=== PATIENT | male | born 1990 | race Caucasian/White ===

== ENCOUNTER 2020-05-30 06:26 | Emergency (ER) | payer OTHER, MEDICAID, SELFPAY ==
[2020-05-30 06:31] VITALS: BP 135/67; PULSE 83; RESP 16; TEMP 36.3; O2SAT 99
--- NOTE | 2020-05-30 06:43 | ED.WOUNDLAC ---
HPI - Wound/Laceration General Chief Complaint: Wound/Laceration Stated Complaint: HAND INJURY - WORK RELATED Time Seen by Provider: 05/30/20 06:42 Source: patient Mode of arrival: ambulatory Limitations: no limitations History of Present Illness HPI narrative: cut L hand on metal object at work Onset (ago): minute(s) Extremity Location: right: hand Place: work Patient tetanus UTD: Yes Context: accidental Associated symptoms: none Treatments prior to arrival: other (irrigated it, applied first aid glue and butterfly strips) Related Data Home Medications Medication Instructions Recorded Confirmed No Known Home Meds 05/30/20 05/30/20 Allergies Allergy/AdvReac Type Severity Reaction Status Date / Time No Known Allergies Allergy Verified 04/29/20 13:03 Review of Systems Review of Systems: Constitutional : No Fever, No Chills, Cardiovascular : No Chest Pain, No SOB Respiratory : No Dyspnea Gastrointestinal : No abdominal pain Musculoskeletal : No Joint Swelling Skin : No rash, positive skin laceration Neuro : No Weakness, No Numbness Psych : No SI/HI PMFSH Past Medical History Attestation statement: The following information was validated with the patient. Medical History (Updated 05/30/20 @ 06:47 by Jaz Mcginnis DO) No active medical problems Surgical History History of inguinal hernia repair Family History Family History (Updated 04/29/20 @ 13:03 by Apolonia To Leonardo) Father Murder Mother No problems noted. Social History Social History (Updated 05/30/20 @ 06:44 by Jaz Mcginnis DO) Smoking Status: Never smoker Physical Exam Vital Signs: Vital Signs: Last Vital Signs Temp 97.3 F 05/30/20 06:31 Pulse 83 05/30/20 06:31 Resp 16 05/30/20 06:31 BP 135/67 05/30/20 06:31 Pulse Ox 99 05/30/20 06:31 Body Mass Index 20.0 Appearance: Alert. Oriented X3. No acute distress. Eyes: Pupils equal, round and reactive to light. ENT: Pharynx normal. Neck: Normal inspection. Neck supple. CVS: Normal heart rate and rhythm. Pulses normal. Respiratory: No respiratory distress. Breath sounds normal. Abdomen: Soft and nontender. Skin: Skin warm and dry. Normal skin color. Normal skin turgor. Extremities: No lower extremity edema. L hand palmar area near distal aspect over hypothenar area 4cm laceration already approximated with glue, full ROM of digits, BCR in all digits, diffuse SILT intact Neuro: Oriented X 3. No motor deficit. No sensory deficit. MDM - Wound/Laceration MDM Narrative Medical decision making narrative: 30 yo male [place] intact post laceration from sharp edge - already glued wound together prearrival no concern for tendon injury will reinforce with steri strips Discharge Plan Discharge Clinical Impression: Laceration Patient Disposition: Home, Self-Care Instructions: Laceration (ED), Skin Adhesive Care (ED), Steristrips (ED) Additional Instructions: return to ED for any worsening symptoms or concerns glue will fall off in 5 to 7 days Prescriptions: No Action No Known Home Meds RF: 0 Referrals: Shruti Nelson MD [Primary Care Provider] - 2 days (if not better) Stand Alone Forms: Work/School Release
--- NOTE | 2020-05-30 06:49 | PC.NURSE ---
Patient wound cleaned and while cleaning the glue came off laceration. MD aware and wound will have to be stitched to close it.
== END 2020-05-30 07:20 | disposition home or self-care (01) ==
PROVIDERS: Emergency Provider Emergency Medicine; PCP Internal Medicine
DX: S61.412A Laceration without foreign body of left hand, initial encounter (principal); W26.8XXA Contact with other sharp object(s), not elsewhere classified, initial encounter; Y93.89 Activity, other specified; Y92.9 Unspecified place or not applicable; Y99.0 Civilian activity done for income or pay
CPT/HCPCS: 99283; 99284

== ENCOUNTER 2020-11-09 13:50 | Emergency (ER) | payer OTHER, MEDICAID, SELFPAY ==
[2020-11-09 13:53] VITALS: BP 122/71; PULSE 75; RESP 18; TEMP 36.6; O2SAT 98; BMI 19.5
--- NOTE | 2020-11-09 15:23 | ED.GENADULT ---
HPI - General Adult General Chief complaint: General Medical Stated complaint: stiff neck Time Seen by Provider: 11/09/20 15:23 Source: patient Mode of arrival: ambulatory History of Present Illness HPI narrative: 30-year-old male with no significant past medical history presenting to the ED complaining of left-sided neck stiffness since this morning. Admits woke up with symptoms, denies known injury/trauma or fall. Reports pain exacerbated with any ROM of head. Denies fever, chills, numbness, tingling, weakness, ear pain, throat pain, headache Onset (ago): day(s) Related Data Previous Rx's Medication Instructions Recorded acetaminophen [Tylenol Extra 500 mg PO Q6H PRN #20 tab 11/09/20 Strength] cyclobenzaprine 5 mg PO Q8H PRN 5 Days #14 tab 11/09/20 lidocaine [Lidoderm] 1 patch TOPICAL DAILY PRN #30 ea 11/09/20 MDD remove after 12 hours naproxen 500 mg PO BID PRN 10 Days #20 tab 11/09/20 Allergies Allergy/AdvReac Type Severity Reaction Status Date / Time No Known Allergies Allergy Verified 04/29/20 13:03 Review of Systems Review of Systems: Constitutional: No Fever, No Chills ENT/Mouth: No Ear Pain, No Nasal Congestion, No sore throat, No Swallowing Difficulty Cardiovascular: No Chest Pain, No SOB Respiratory: No Cough Gastrointestinal: No Nausea, No Vomiting, No Diarrhea, No Abdominal pain Genitourinary: No Urinary Incontinence Musculoskeletal: + neck pain, No Myalgias, No Joint Swelling Skin: No Skin Lesions, No rash Neuro: No Weakness, No Numbness, No Paresthesias Yes all other systems are reviewed and are negative [facility] Past Medical History Attestation statement: The following information was validated with the patient. Medical History (Updated 11/09/20 @ 15:25 by ANNELISE Quintero) No active medical problems Surgical History History of inguinal hernia repair Family History Family History (Updated 04/29/20 @ 13:03 by CHICO Moreira) Father Murder Mother No problems noted. Social History Social History (Updated 05/30/20 @ 06:44 by Jaz Mcginnis DO) Alcohol intake: current Smoking Status: Never smoker Substance Use Type: Marijuana Advance Directives: No Advance Directives Information Provided: No Physical Exam Vital Signs: Vital Signs: Last Vital Signs Temp 98 F 11/09/20 13:53 Pulse 75 11/09/20 13:53 Resp 18 11/09/20 13:53 BP 122/71 11/09/20 13:53 Pulse Ox 98 11/09/20 13:53 Body Mass Index 19.5 Const: General: cooperative, healthy appearing and no acute distress Orientation/consciousness: patient oriented x3 Limitations: no limitations HENMT: Head: Yes normal to inspection and Yes atraumatic Ears: hearing grossly normal bilaterally General nose exam: Normal external nose present Face and sinus: Yes normal facial exam Mouth: Normal oral and palatal mucosa present Throat: Yes posterior oropharynx normal, Yes tonsils normal and Yes uvula midline Eyes: General: appearance normal, both eyes and all related structures EOM: EOMs intact bilaterally Neck: Other: No midline cervical spinous tenderness/step-off or deformity. + left-sided neck paraspinal/ MSK tenderness to palpation and left trapezius muscle tenderness to palpation + visible muscle spasming of neck Neck: Yes normal visual inspection, Yes no meningeal signs, Yes supple and No anterior neck swelling Chest: Chest palpation & inspection: normal inspection of the chest Resp: Effort & Inspection: normal respiratory effort and not labored Cardio: Rate: regular rate Peripheral pulses: radial pulses present GI: Inspection: Yes normal to inspection Back/Spine/Pelvis: Other: No midline thoracic/lumbar spinous tenderness Skin: Rashes: no rashes Wounds: no wounds Neuro: General: patient oriented x3, gait normal, tone normal and no meningeal signs Gait exam (Neuro): Normal gait present Extrem: General: Yes normal to inspection Medical Decision Making [facility] Narrative Medical decision making narrative: 30-year-old male with no significant past medical history presenting to the ED complaining of left-sided neck stiffness since this morning. On exam vital signs stable, NAD, physical exam as above, no midline spinous tenderness, visible muscle spasming of neck appreciated with left-sided MSK/paraspinal tenderness. Concern for muscle spasming/MSK pain. Unlikely bony/vascular abnormality Plan: Patient is driving home from ED today, discussed worrisome signs and symptoms and strict return precautions/pain management at home Discharge Plan Discharge Clinical Impression: Neck stiffness, Neck muscle spasm Patient Disposition: Home, Self-Care Instructions: Spasmodic Torticollis (ED) Additional Instructions: Your pain is likely musculoskeletal Flexeril is a muscle relaxer, take at night as it makes you drowsy, do not drive, drink alcohol, or operate machinery while taking it Naproxen as an anti-inflammatory / pain medication, take with food Lidoderm patches are numbing patches, apply to painful area In addition take Tylenol at home If symptoms persist or worsen, pain becomes unbearable, you developed urinary retention or incontinence, or weakness return to the ED Prescriptions: New acetaminophen [Tylenol Extra Strength] 500 mg tablet 500 mg PO Q6H PRN (Reason: pain or fever) Qty: 20 RF: 0 lidocaine [Lidoderm] 5 % adhesive patch,medicated 1 patch topical DAILY MDD remove after 12 hours PRN (Reason: pain) Qty: 30 RF: 0 naproxen 500 mg tablet 500 mg PO BID PRN (Reason: pain) 10 Days Qty: 20 RF: 0 cyclobenzaprine 5 mg tablet 5 mg PO Q8H PRN (Reason: pain (scale score 7-10)) 5 Days Qty: 14 RF: 0 Referrals: Shruti Nelson MD [Primary Care Provider] - 5 days
== END 2020-11-09 15:35 | disposition home or self-care (01) ==
PROVIDERS: Emergency Provider Emergency Medicine Emergency Medical Services; PCP Internal Medicine
DX: M43.6 Torticollis (principal); F12.90 Cannabis use, unspecified, uncomplicated; M62.838 Other muscle spasm; Z79.899 Other long term (current) drug therapy
CPT/HCPCS: 99283

== ENCOUNTER 2022-11-02 15:00 | Outpatient (RCR) | payer OTHER, MEDICAID, SELFPAY ==
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
--- NOTE | 2022-11-02 15:26 | MHC.OT.DC ---
[address] [phone] F: [phone] Occupational Therapy Discharge Note Patient Name: Claire Mckee Provider: CHARU Foreman Diagnosis: PAIN IN LEFT ELBOW Date of Evaluation: 09/26/22 Date of Discharge: 11/02/22 Treatments to Date: 10 Discharge Status: Achieved Goals Improved Function Independent with HEP Discharge Summary: CLAIRE IS DOING WELL S/P LEFT ELBOW INJURY. HE IS PAIN FREE AT REST AND REPORTS LIGHT PAIN STILL WITH DAY TO DAY USE. 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 *LAST WEEK Pt WAS NOTED TO HAVE AREA OF EDEMA AND REDNESS OVER RIGHT OLECRONON, SOMEWHAT IMPROVED TODAY, NOW LONGER RED. ADVISED TO FOLLOW UP W/ PCP IF NO IMPROVEMENTS. Electronically Signed By: RACHEL CRAFT/Michel LYNNT Reviewed/agree with student documentation: N/A Therapist: Please Sign and return to therapist, thank you for your referral.
== END 2022-11-02 15:27 | disposition home or self-care (01) ==
LOC: HO.OT 15:00
PROVIDERS: PCP Internal Medicine; Visit Provider Nurse Practitioner Family
DX: M25.522 Pain in left elbow (principal)
CPT/HCPCS: 97033; 97035; 97110; 97166